=== PATIENT | male | born 1990 | race Caucasian/White ===

== ENCOUNTER 2020-11-30 09:34 | Emergency (ER) | payer MEDICAID ==
[~2020-11-30] VITALS: Ht 172.7 cm; Wt 72.6 kg
[2020-11-30 09:35] VITALS: BP_SYST 170
[2020-11-30] MEDS ORDERED: PEG15DRO5 EACH EYE (09:46)
[2020-11-30 10:10] VITALS: BP_SYST 170
== END 2020-11-30 10:12 | disposition home or self-care (01) ==
LOC: SED 09:34
DX: H10.9 Unspecified conjunctivitis (principal); I10 Essential (primary) hypertension; Z79.899 Other long term (current) drug therapy
CPT/HCPCS: 99282

== ENCOUNTER → 2021-06-30 | Emergency (ER) | payer MEDICAID, SELFPAY ==
[~2021-06-30] VITALS: Ht 172.7 cm; Wt 93.4 kg
[~2021-06-30] MED LIST: ASPIRIN 81 MG TAB.CHEW ONE; ASPIRIN 81 MG TAB.CHEW PO ONE; BENZTROPINE MESYLATE 2 MG/ 2 ML AMP IM ONE; DIPHENHYDRAMINE INJ 50 MG/ML VIAL IM ONE; HALOPERIDOL LACTATE 5 MG/ML VIAL IM ONE; KCL 20 mEq in 100 mL (PREMIX) 100 ML IV ONE; LORazepam 2 MG/ML VIAL IM ONE; LORazepam 2 MG/ML VIAL IVP ONE; NACL 0.9% 2,000 ML IV ONE; PEG15DRO12 EACH EYE; POTASSIUM CHLORIDE 20 MEQ TAB.PRT.SR PO ONE
--- NOTE | 2021-06-30 20:26 | NUR ---
Placed in room 5 . Placed on quality assurance monitor body, blood pressure machine and pulse oximeter. To gown for exam. Side rails up. Report given to MANUEL ESPOSITO(REG).
[2021-06-30 20:30] VITALS: BP_SYST 142
--- NOTE | 2021-06-30 20:30 | NUR ---
Dr. Bright present in room.
--- NOTE | 2021-06-30 21:00 | NUR ---
Notified by phlebotomy that patient refused blood draw. First contact. Pt yelling at officers and denies the need for any medications and persist that his heart rate is always high.
--- NOTE | 2021-06-30 21:28 | NUR ---
Pt continues to yell and is visibly upset with officers. Pt refuses to stay still so that blood pressure can be taken. Will attempt bp check later.
--- NOTE | 2021-06-30 22:25 | NUR ---
Instructed by Dr. Bright to withhold haldol medication.
[2021-06-30 22:46] LABS: BASOPHILS % (AUTO) 0.4 % (0.0-2.0); EOSINOPHILS % (AUTO) 0.2 % (0.0-4.0); HEMOGLOBIN 16.6 g/dL (14.0-18.0); LYMPHOCYTES # (AUTO) 2.1 K/uL (1.0-5.5); LYMPHOCYTES % (AUTO) 22.9 % (20.5-51.5); MEAN CORPUSCULAR HEMOGLOBIN 31 pg (27-31); MEAN CORPUSCULAR HGB CONC 35 % (32-36); MEAN CORPUSCULAR VOLUME 90 fL (79.0-98.0); MONOCYTES # (AUTO) 0.5 K/uL (0.0-1.0); MONOCYTES % (AUTO) 5.4 % (1.7-9.3); NEUTROPHILS # (AUTO) 6.5 K/uL (1.8-7.7); NEUTROPHILS % (AUTO) 71.1 % (40.0-70.0); PLATELET COUNT (AUTO) 240 K/uL (130-430); RED BLOOD CELL COUNT(AUTO) 5.36 MIL/uL (4.2-6.2); RED CELL DISTRIBUTION WIDTH 13.8 % (9.0-15.0); WHITE BLOOD COUNT (AUTO) 9.2 K/uL (4.8-10.8)
--- NOTE | 2021-06-30 22:48 | NUR ---
Patient off to CT at this time.
[2021-06-30 23:00] LABS: CALCIUM 8.7 mg/dL (8.4-11.0); CREATININE 0.85 mg/dL (0.55-1.30); POTASSIUM 3.3 mmol/L (3.5-5.1)
--- NOTE | 2021-06-30 23:06 | NUR ---
Covid-19 swab was obtained and sent to the lab.
[2021-06-30 23:08] LABS: ALBUMIN 4.4 g/dL (3.4-4.8); TOTAL BILIRUBIN 0.7 mg/dL (0.0-1.0)
[2021-07-01 06:00] VITALS: BP_SYST 128
== END | disposition home or self-care (01) ==
LOC: SED 20:23
DX: R45.1 Restlessness and agitation (principal); R41.82 Altered mental status, unspecified; F19.10 Other psychoactive substance abuse, uncomplicated; Z79.899 Other long term (current) drug therapy
CPT/HCPCS: 36415; 70450; 71045; 76376; 80053; 83880; 84484; 85025; 87426; 93005; 96361; 96372; 96374; 99291; J0515; J1200; J1630; J2060; J7030

== ENCOUNTER 2021-09-28 15:21 | Emergency (ER) | payer MEDICAID ==
[~2021-09-28] VITALS: Ht 172.7 cm; Wt 90.7 kg
[~2021-09-28 15:21] MED LIST changes: -ASPIRIN 81 MG TAB.CHEW ONE; -ASPIRIN 81 MG TAB.CHEW PO ONE; -BENZTROPINE MESYLATE 2 MG/ 2 ML AMP IM ONE; -DIPHENHYDRAMINE INJ 50 MG/ML VIAL IM ONE; -HALOPERIDOL LACTATE 5 MG/ML VIAL IM ONE; -KCL 20 mEq in 100 mL (PREMIX) 100 ML IV ONE; -LORazepam 2 MG/ML VIAL IM ONE; -LORazepam 2 MG/ML VIAL IVP ONE; -NACL 0.9% 2,000 ML IV ONE; -POTASSIUM CHLORIDE 20 MEQ TAB.PRT.SR PO ONE
[2021-09-28 15:56] VITALS: BP_SYST 150
--- NOTE | 2021-09-28 15:56 | NUR ---
Note devin in EDM - 09/28/21 at 1559 by [email or web address] Patient to ER bed [] to [facility] for evaluation. Side rails up. Report given to [].
--- NOTE | 2021-09-28 15:59 | NUR ---
Patient sitting in his car. will call when md available,
--- NOTE | 2021-09-28 16:00 | NUR ---
patient brought in by self complaining of productive cough, runny nose, congestion and sore throat x 4 days. Patient reports taking Covid test and results were negative. no acute distress noted. denies any pain.
[2021-09-28 16:20] LABS: STREPTOCOCCUS A SCREEN (RAPID) NEGATIVE (NEGATIVE)
[2021-09-28] MEDS ORDERED: PHEN-707 PO (16:58)
[2021-09-28] MEDS ORDERED: ROBAC PO (16:58)
--- NOTE | 2021-09-28 17:10 | NUR ---
ER at bedside examining patient.
[2021-09-28 17:13] VITALS: BP_SYST 132
--- NOTE | 2021-09-28 17:13 | NUR ---
Patient given written and verbal discharge instructions and verbalizes understanding. ER MD discussed with patient the results and treatment provided. Patient in stable condition. ID arm band removed. IV catheter removed intact and dressing applied, no active bleeding. Rx of COLD AND FLU SEVERE CAPSULE given. Patient educated on pain management and to follow up with PMD. Pain Scale 0/10 Opportunity for questions provided and answered. Medication side effect fact sheet provided.
== END 2021-09-28 17:13 | disposition home or self-care (01) ==
LOC: SED 15:21
DX: J06.9 Acute upper respiratory infection, unspecified (principal); R05.9 Cough, unspecified; Z20.822 Contact with and (suspected) exposure to COVID-19
CPT/HCPCS: 36415; 86403; 87081; 99283

== ENCOUNTER 2021-09-29 10:47 | Emergency (ER) | payer MEDICAID ==
[~2021-09-29 10:47] MED LIST changes: +PHEN-707 PO; +ROBAC PO
--- NOTE | 2021-09-29 11:25 | NUR ---
Went to triage area and patient not seen nor did he answer when called. LWBS.
== END 2021-09-29 11:25 | disposition left against medical advice (07) ==
LOC: SED 10:47
DX: J02.9 Acute pharyngitis, unspecified (principal); Z53.21 Procedure and treatment not carried out due to patient leaving prior to being seen by health care provider

== ENCOUNTER 2021-10-03 01:23 | Emergency (ER) | payer MEDICAID ==
[~2021-10-03] VITALS: Ht 172.7 cm; Wt 81.6 kg
[~2021-10-03 01:23] MED LIST changes: -ROBAC PO
[2021-10-03 01:27] VITALS: BP_SYST 162
[2021-10-03 02:27] LABS: BASOPHILS # (AUTO) 0.1 K/uL (0.0-0.2); BASOPHILS % (AUTO) 0.8 % (0.0-2.0); EOSINOPHILS % (AUTO) 0.1 % (0.0-4.0); HEMATOCRIT 43.4 % (36-54); HEMOGLOBIN 15.7 g/dL (14.0-18.0); LYMPHOCYTES # (AUTO) 7.1 K/uL (1.0-5.5); LYMPHOCYTES % (AUTO) 61.2 % (20.5-51.5); MEAN CORPUSCULAR HEMOGLOBIN 33 pg (27-31); MEAN CORPUSCULAR HGB CONC 36 % (32-36); MEAN CORPUSCULAR VOLUME 91 fL (79.0-98.0); MONOCYTES # (AUTO) 0.9 K/uL (0.0-1.0); MONOCYTES % (AUTO) 7.6 % (1.7-9.3); NEUTROPHILS # (AUTO) 3.5 K/uL (1.8-7.7); PLATELET COUNT (AUTO) 201 K/uL (130-430); RED CELL DISTRIBUTION WIDTH 14.5 % (9.0-15.0); WHITE BLOOD COUNT (AUTO) 11.5 K/uL (4.8-10.8)
--- NOTE | 2021-10-03 02:55 | NUR ---
Patient to ER HB1 to for evaluation. Side rails up.
--- NOTE | 2021-10-03 03:00 | NUR ---
ALEC Bright at bedside examining patient.
--- NOTE | 2021-10-03 03:08 | NUR ---
Pt came from home with c/o sore throat that started last week. Pt reports having strept throat and was concerned about the swelling. A&O x 4, ambulatory, and follows simple commands. Safety precautions in place.
[2021-10-03] MEDS ORDERED: MED4 PO (03:12)
[2021-10-03] MEDS ORDERED: IBUP-1969 PO (03:13)
[2021-10-03] MEDS ORDERED: DEXAMETHASONE SOD PHOSPHATE 4 MG/ML VIAL IM ONE (03:15)
--- NOTE | 2021-10-03 03:20 | NUR ---
UA and blood cultures canceled per MD order.
[2021-10-03 03:33] VITALS: BP_SYST 149
--- NOTE | 2021-10-03 03:33 | NUR ---
Patient given written and verbal discharge instructions and verbalizes understanding. ER Dr. Bright discussed with patient the results and treatment provided. Patient in stable condition. ID arm band removed. Rx of medrol and motrin given. Patient educated on pain management and to follow up with PMD. Pain Scale 3. Opportunity for questions provided and answered. Medication side effect fact sheet provided.
[2021-10-03 04:31] LABS: NEUTROPHILS % (AUTO) 30.3 % (40.0-70.0)
== END 2021-10-03 03:33 | disposition home or self-care (01) ==
LOC: SED 01:23
DX: J02.0 Streptococcal pharyngitis (principal); F41.1 Generalized anxiety disorder; Z79.899 Other long term (current) drug therapy; Z20.822 Contact with and (suspected) exposure to COVID-19
CPT/HCPCS: 36415; 85025; 87426; 96372; 99283; J1100

== ENCOUNTER 2022-02-23 20:09 | Emergency (ER) | payer MEDICAID ==
[~2022-02-23] VITALS: Ht 172.7 cm; Wt 79.4 kg
[~2022-02-23 20:09] MED LIST changes: +IBUP-1969 PO; +MED4 PO
[2022-02-23 21:29] VITALS: BP_SYST 103
[2022-02-23 22:11] VITALS: BP_SYST 110
--- NOTE | 2022-02-23 22:11 | NUR ---
Patient given written and verbal discharge instructions and verbalizes understanding. ER MD discussed with patient the results and treatment provided. Patient in stable condition. ID arm band removed. IV catheter removed intact and dressing applied, no active bleeding. Rx of given. Patient educated on pain management and to follow up with PMD. Pain Scale . Opportunity for questions provided and answered. Medication side effect fact sheet provided. pt was escorted by law enforcement for ok to book.
[2022-02-24] MEDS ORDERED: VITA1CAP PO (09:50)
[2022-02-24] MEDS ORDERED: CIPR500T5 PO (09:50)
[2022-02-24] MEDS ORDERED: VITD2000 PO (09:50)
[2022-02-24] MEDS ORDERED: LEVO88CA4 (09:50)
[2022-02-24] MEDS ORDERED: MIDO10TA PO (09:50)
[2022-02-24] MEDS ORDERED: LIP40 PO (09:50)
[2022-02-24] MEDS ORDERED: PRO40 PO (09:50)
[2022-02-24] MEDS ORDERED: MULT-976 PO (09:50)
[2022-02-24] MEDS ORDERED: FERR236T3 PO (09:50)
[2022-02-24] MEDS ORDERED: TAMS-11 PO (09:50)
[2022-02-24] MEDS ORDERED: DUTA0.5C PO (09:50)
== END 2022-02-23 22:11 | disposition home or self-care (01) ==
LOC: SED 20:09
DX: Z02.89 Encounter for other administrative examinations (principal); F17.200 Nicotine dependence, unspecified, uncomplicated; Z79.899 Other long term (current) drug therapy
CPT/HCPCS: 99281; 99283

== ENCOUNTER 2022-02-24 05:52 | Emergency (ER) | payer MEDICAID ==
[~2022-02-24] VITALS: Ht 172.7 cm; Wt 95.3 kg
[2022-02-24 05:55] VITALS: BP_SYST 168
--- NOTE | 2022-02-24 06:20 | NUR ---
EKG ADMINISTERED AT BED SIDE BY EMT FRANCESCO AND GIVEN TO ER DR FOR INTERP AND TRANSFERED - 05:59
[2022-02-24] MEDS ORDERED: chlordiazePOXIDE HCL 25 MG CAPSULE PO ONE (06:30)
[2022-02-24] MEDS ORDERED: ONDANSETRON 4 MG ODT TAB PO ONE (06:30)
[2022-02-24] MEDS ORDERED: MAG HYDROX/AL HYDROX/SIMETH 30 ML, LIDOCAINE VISCOUS 2% 15ML (PO) 15 ML, DICYCLOMINE HC... PO ONE ×3 (06:30)
[2022-02-24] MEDS ORDERED: NACL 0.9% 1,000 ML IV ONE (07:00)
[2022-02-24] MEDS ORDERED: LORazepam 2 MG/ML VIAL IVP ONE ×2 (07:00→07:45)
[2022-02-24 07:32] LABS: BASOPHILS # (AUTO) 0.1 K/uL (0.0-0.2); BASOPHILS % (AUTO) 0.5 % (0.0-2.0); EOSINOPHILS % (AUTO) 0.1 % (0.0-4.0); HEMATOCRIT 46.6 % (36-54); HEMOGLOBIN 16.4 g/dL (14.0-18.0); LYMPHOCYTES # (AUTO) 1.7 K/uL (1.0-5.5); LYMPHOCYTES % (AUTO) 14.2 % (20.5-51.5); MEAN CORPUSCULAR HEMOGLOBIN 32 pg (27-31); MEAN CORPUSCULAR HGB CONC 35 % (32-36); MEAN CORPUSCULAR VOLUME 90 fL (79.0-98.0); MONOCYTES # (AUTO) 0.8 K/uL (0.0-1.0); MONOCYTES % (AUTO) 6.5 % (1.7-9.3); NEUTROPHILS # (AUTO) 9.7 K/uL (1.8-7.7); NEUTROPHILS % (AUTO) 78.7 % (40.0-70.0); PLATELET COUNT (AUTO) 314 K/uL (130-430); RED BLOOD CELL COUNT(AUTO) 5.19 MIL/uL (4.2-6.2); RED CELL DISTRIBUTION WIDTH 13.5 % (9.0-15.0); WHITE BLOOD COUNT (AUTO) 12.3 K/uL (4.8-10.8)
[2022-02-24 07:53] LABS: ANION GAP 12 (5-15); CALCIUM 9.4 mg/dL (8.4-11.0); CHLORIDE 102 mmol/L (98-107); CREATININE 0.82 mg/dL (0.55-1.30); GFR AFRICAN AMERICAN 141 mL/min (>90); GLUCOSE 94 mg/dL (70-99); UREA NITROGEN, BLOOD 13 mg/dL (8-21)
[2022-02-24 07:57] LABS: ALANINE AMINOTRANSFERASE 40 U/L (12-78); ALBUMIN 4.7 g/dL (3.4-4.8); ASPARTATE AMINOTRANSFERASE 42 U/L (10-37); LIPASE 111 U/L (73-393); TOTAL BILIRUBIN 1.7 mg/dL (0.0-1.0)
--- NOTE | 2022-02-24 08:18 | NUR ---
Patient resting quietly. No acute distress noted. Vital signs within normal range.safety maintained will continue to monitor.
[2022-02-24 08:46] VITALS: BP_SYST 154
--- NOTE | 2022-02-24 08:49 | NUR ---
patient condition stable d/c home with instructions after care reviewed understood left er ambulatory with steady gait.
--- NOTE | 2022-02-24 08:50 | NUR ---
Patient given written and verbal discharge instructions and verbalizes understanding. ER MD discussed with patient the results and treatment provided. Patient in stable condition. ID arm band removed. IV catheter removed intact and dressing applied, no active bleeding. Patient educated on pain management and to follow up with PMD. Pain Scale . Opportunity for questions provided and answered. Medication side effect fact sheet provided.
[2022-02-24] MEDS ORDERED: ONDANSETRON 4 MG ODT TAB ONE (08:53)
[2022-02-24] MEDS ORDERED: LIDOCAINE VISCOUS 2%, 15 ML UDC ONE (08:53)
[2022-02-24] MEDS ORDERED: DICYCLOMINE HCL 10 MG/5 ML SOLUTION ONE (08:53)
[2022-02-24] MEDS ORDERED: chlordiazePOXIDE HCL 25 MG CAPSULE ONE (08:53)
[2022-02-24] MEDS ORDERED: MAG-AL HYDROX/SIMETH 30 ML UDC ONE (08:53)
[2022-02-24] MEDS ORDERED: TAMS-11 PO (09:50)
[2022-02-24] MEDS ORDERED: DUTA0.5C PO (09:50)
[2022-02-24] MEDS ORDERED: CIPR500T5 PO (09:50)
[2022-02-24] MEDS ORDERED: MIDO10TA PO (09:50)
[2022-02-24] MEDS ORDERED: FERR236T3 PO (09:50)
[2022-02-24] MEDS ORDERED: MULT-976 PO (09:50)
[2022-02-24] MEDS ORDERED: LIP40 PO (09:50)
[2022-02-24] MEDS ORDERED: VITD2000 PO (09:50)
[2022-02-24] MEDS ORDERED: LEVO88CA4 (09:50)
[2022-02-24] MEDS ORDERED: VITA1CAP PO (09:50)
[2022-02-24] MEDS ORDERED: PRO40 PO (09:50)
== END 2022-02-24 08:50 ==
LOC: SED 05:52
DX: K29.20 Alcoholic gastritis without bleeding (principal); F10.239 Alcohol dependence with withdrawal, unspecified; F10.20 Alcohol dependence, uncomplicated; R11.0 Nausea; R07.9 Chest pain, unspecified; R10.13 Epigastric pain; Z79.899 Other long term (current) drug therapy; Y90.6 Blood alcohol level of 120-199 mg/100 ml
CPT/HCPCS: 99285; 96374; 71045; 96361; 80053; 83880; 83690; 85025; 84484; 36415; 93005; Q0162; J2001; J2060; J7030

== ENCOUNTER 2022-09-18 14:21 | Emergency (ER) | payer MEDICAID ==
[~2022-09-18] VITALS: Ht 177.8 cm; Wt 73.5 kg
[~2022-09-18 14:21] MED LIST changes: +CIPR500T5 PO; +DUTA0.5C PO; +FERR236T3 PO; +LEVO88CA4; +LIP40 PO; +MIDO10TA PO; +MULT-976 PO; +PRO40 PO; +TAMS-11 PO; +VITA1CAP PO; +VITD2000 PO
[2022-09-18] MEDS ORDERED: PANTOPRAZOLE SODIUM 40 MG/VIAL (PROTONIX) IVP ONE (14:30)
[2022-09-18] MEDS ORDERED: NACL 0.9% 1,000 ML IV ONE (14:30)
[2022-09-18] MEDS ORDERED: ONDANSETRON HCL 4 MG/2 ML VIAL IVP ONE (14:30)
[2022-09-18 14:35] VITALS: BP_SYST 164
[2022-09-18 14:56] LABS: EOSINOPHILS # (AUTO) 0.1 K/uL (0.0-0.4)
[2022-09-18 15:09] LABS: BASOPHILS # (AUTO) 0.1 K/uL (0.0-0.2); BASOPHILS % (AUTO) 0.6 % (0.0-2.0); EOSINOPHILS % (AUTO) 1.6 % (0.0-4.0); HEMATOCRIT 47.9 % (36-54); HEMOGLOBIN 16.5 g/dL (14.0-18.0); LYMPHOCYTES # (AUTO) 2.2 K/uL (1.0-5.5); LYMPHOCYTES % (AUTO) 27.5 % (20.5-51.5); MEAN CORPUSCULAR HEMOGLOBIN 31 pg (27-31); MEAN CORPUSCULAR HGB CONC 34 % (32-36); MEAN CORPUSCULAR VOLUME 90 fL (79.0-98.0); MONOCYTES # (AUTO) 0.7 K/uL (0.0-1.0); MONOCYTES % (AUTO) 8.5 % (1.7-9.3); NEUTROPHILS % (AUTO) 61.8 % (40.0-70.0); PLATELET COUNT (AUTO) 283 K/uL (130-430); RED BLOOD CELL COUNT(AUTO) 5.34 MIL/uL (4.2-6.2); RED CELL DISTRIBUTION WIDTH 14.3 % (9.0-15.0); WHITE BLOOD COUNT (AUTO) 8.1 K/uL (4.8-10.8)
[2022-09-18 15:11] LABS: ALANINE AMINOTRANSFERASE 38 U/L (12-78); ALBUMIN 3.8 g/dL (3.4-4.8); ANION GAP 9 (5-15); ASPARTATE AMINOTRANSFERASE 30 U/L (10-37); CALCIUM 8.5 mg/dL (8.4-11.0); CHLORIDE 102 mmol/L (98-107); CREATININE 0.93 mg/dL (0.55-1.30); GFR AFRICAN AMERICAN 121 mL/min (>90); GLUCOSE 99 mg/dL (70-99); TOTAL BILIRUBIN 1.7 mg/dL (0.0-1.0); UREA NITROGEN, BLOOD 20 mg/dL (8-21)
[2022-09-18 15:13] LABS: LIPASE 158 U/L (73-393)
[2022-09-18 15:15] LABS: ALCOHOL, BLOOD < 3 mg/dL (<10)
[2022-09-18 16:21] VITALS: BP_SYST 164
== END 2022-09-18 16:19 ==
LOC: SED 14:21
DX: Z02.89 Encounter for other administrative examinations (principal); R07.9 Chest pain, unspecified; R10.13 Epigastric pain; R11.2 Nausea with vomiting, unspecified; F17.200 Nicotine dependence, unspecified, uncomplicated; F15.10 Other stimulant abuse, uncomplicated; Z79.899 Other long term (current) drug therapy
CPT/HCPCS: 99285; 96374; 71045; 96361; 96375; 80053; 83880; 83690; 85025; 84484; 36415; 93005; G0482; J2405; C9113; J7030

== ENCOUNTER 2023-02-22 13:29 | Emergency (ER) | payer MEDICAID ==
[~2023-02-22] VITALS: Ht 172.7 cm; Wt 79.4 kg
[2023-02-22 13:35] VITALS: BP_SYST 117; PULSE 67; RESP 19; TEMP 98; O2SAT 99
[2023-02-22 14:44] LABS: BILIRUBIN,URINE 1+ (NEGATIVE); CLARITY/URINE CLOUDY (CLEAR); COLOR,URINE YELLOW (YELLOW); GLUCOSE,URINE NEGATIVE (NEGATIVE); KETONES,URINE TRACE (NEGATIVE); LEUKOCYTE ESTERASE ,URINE 2+ (NEGATIVE); NITRITE, URINE NEGATIVE (NEGATIVE); PROTEIN URINE 1+ (NEGATIVE); UROBILINOGEN,URINE 0.2 (0.2-1.0)
[2023-02-22 14:52] LABS: BLOOD, URINE TRACE (NEGATIVE)
[2023-02-22 15:01] LABS: BACTERIA,URINE RARE /HPF (None Seen); WBC,URINE 50-80 /HPF (0-3)
[2023-02-22] MEDS ORDERED: DOXY100C PO (15:14)
[2023-02-22] MEDS ORDERED: AZITHROMYCIN 250 MG TABLET PO ONE (15:15)
[2023-02-22] MEDS ORDERED: cefTRIAXone 250 MG VIAL IM ONE (15:15)
[2023-02-22] MEDS ORDERED: LIDOCAINE 1%, 20 ML MDV 20 ML ONE (15:19)
[2023-02-23 08:41] LABS: NEISSERIA GONORRHOEAE PCR Detected (NOTdetected)
== END 2023-02-22 15:48 | disposition home or self-care (01) ==
LOC: SED 13:29
DX: N34.2 Other urethritis (principal); R35.0 Frequency of micturition; Z79.899 Other long term (current) drug therapy
CPT/HCPCS: 99283; 81001; 87086; 36415; 96372; 87491; 81000; 81015; J0696; J2001; Q0144

== ENCOUNTER 2023-05-14 13:16 | Emergency (ER) | payer MEDICAID ==
[~2023-05-14] VITALS: Ht 172.7 cm; Wt 81.6 kg
[~2023-05-14 13:16] MED LIST changes: +DOXY100C PO
[2023-05-14 13:50] VITALS: BP_SYST 136; PULSE 94; RESP 18; TEMP 96.9; O2SAT 97
[2023-05-14] MEDS ORDERED: cefTRIAXone 1 GM in LIDOCAINE 1%, 20 ML MDV 2.1 ML IM ONE (14:30)
[2023-05-14] MEDS ORDERED: DOXY150C6 PO (14:39)
[2023-05-14 15:16] LABS: BILIRUBIN,URINE NEGATIVE (NEGATIVE); BLOOD, URINE 1+ (NEGATIVE); COLOR,URINE YELLOW (YELLOW); GLUCOSE,URINE NEGATIVE (NEGATIVE); KETONES,URINE NEGATIVE (NEGATIVE); LEUKOCYTE ESTERASE ,URINE 2+ (NEGATIVE); NITRITE, URINE NEGATIVE (NEGATIVE); PROTEIN URINE 1+ (NEGATIVE); UROBILINOGEN,URINE 0.2 (0.2-1.0)
[2023-05-14 15:21] LABS: CLARITY/URINE HAZY (CLEAR)
[2023-05-14 15:27] LABS: BACTERIA,URINE MODERATE /HPF (None Seen); WBC,URINE 50-80 /HPF (0-3)
[2023-05-14 16:05] VITALS: BP_SYST 136; PULSE 94; RESP 18; TEMP 96.9; O2SAT 97
== END 2023-05-14 15:03 | disposition home or self-care (01) ==
LOC: SED 13:16
DX: N34.2 Other urethritis (principal); R36.9 Urethral discharge, unspecified; R30.0 Dysuria; Z79.899 Other long term (current) drug therapy
CPT/HCPCS: 99283; 81001; 82962; 87086; 36415; 96372; 81000; 81015; J0696; 87491; J2001

== ENCOUNTER 2023-09-21 19:05 | Emergency (ER) | payer MEDICAID ==
[~2023-09-21] VITALS: Ht 172.7 cm; Wt 83.0 kg
[~2023-09-21 19:05] MED LIST changes: +DOXY150C8 PO; +GENT5DRO7 EACH EYE
[2023-09-21 19:12] VITALS: BP_SYST 138; PULSE 95; RESP 18; TEMP 96.9; O2SAT 99
[2023-09-21 20:04] LABS: BILIRUBIN,URINE NEGATIVE (NEGATIVE); CLARITY/URINE SL CLOUDY (CLEAR); COLOR,URINE YELLOW (YELLOW); GLUCOSE,URINE NEGATIVE (NEGATIVE); KETONES,URINE NEGATIVE (NEGATIVE); LEUKOCYTE ESTERASE ,URINE 1+ (NEGATIVE); NITRITE, URINE NEGATIVE (NEGATIVE); PROTEIN URINE NEGATIVE (NEGATIVE); UROBILINOGEN,URINE 0.2 (0.2-1.0)
[2023-09-21 20:09] LABS: BLOOD, URINE TRACE (NEGATIVE)
[2023-09-21] MEDS ORDERED: DOXY100C PO (20:31)
[2023-09-21 20:34] LABS: BACTERIA,URINE FEW /HPF (None Seen)
[2023-09-21] MEDS: cefTRIAXone 500 MG in LIDOCAINE 1%, 20 ML MDV 1 ML IM ONE (20:37)
[2023-09-21 20:49] VITALS: BP_SYST 138; PULSE 95; RESP 18; TEMP 96.9; O2SAT 99
== END 2023-09-21 20:48 | disposition home or self-care (01) ==
LOC: SED 19:05
DX: N34.2 Other urethritis (principal); F10.90 Alcohol use, unspecified, uncomplicated; Z79.899 Other long term (current) drug therapy; Z79.2 Long term (current) use of antibiotics
CPT/HCPCS: 99283; 81001; 87086; 96372; J0696; 81000; 81015

== ENCOUNTER 2023-12-28 10:13 | Emergency (ER) | payer MEDICAID ==
[~2023-12-28] VITALS: Ht 172.7 cm; Wt 79.4 kg
[2023-12-28 10:15] VITALS: BP_SYST 145; PULSE 97; RESP 18; TEMP 97.9; O2SAT 98
[2023-12-28] MEDS ORDERED: DOXY100C5 PO (10:29)
== END 2023-12-28 10:44 | disposition home or self-care (01) ==
LOC: SED 10:13
DX: L73.2 Hidradenitis suppurativa (principal); Z79.899 Other long term (current) drug therapy; Z79.2 Long term (current) use of antibiotics
CPT/HCPCS: 99283